=== PATIENT | male | born 1990 | race Caucasian/White ===

== ENCOUNTER 2024-11-10 23:16 | Emergency (ER) | payer MEDICAID ==
[~2024-11-10] VITALS: Ht 172.7 cm; Wt 96.0 kg
[2024-11-10 23:21] VITALS: O2SAT 99
[2024-11-11] MEDS: MORPHINE SULFATE 4 MG/ML INJ (FOR IV/IM USE) IM ONE ×2 (00:15→01:57)
[2024-11-11] MEDS ORDERED: HYDR-4001 MT (01:40)
[2024-11-11] MEDS: IBUPROFEN 600MG TABLET PO ONE (01:57)
[2024-11-11] MEDS ORDERED: IBUP-2029 MT (02:18)
[2024-11-11 02:30] VITALS: BP 113/81; PULSE 65; RESP 10; TEMP 36.7; O2SAT 99
== END 2024-11-11 02:33 | disposition home or self-care (01) ==
LOC: ER 23:16
DX: S82.141A Displaced bicondylar fracture of right tibia, initial encounter for closed fracture (principal); X58.XXXA Exposure to other specified factors, initial encounter; Y93.89 Activity, other specified; Y92.89 Other specified places as the place of occurrence of the external cause; Y99.8 Other external cause status
CPT/HCPCS: 99284; 29505; 73560; 73590; 96372; J2270